=== PATIENT | female | born 1990 | race Caucasian/White ===

== ENCOUNTER 2016-09-11 14:25 | Day surgery (SDC) | payer OTHER ==
[2016-09-03 14:19] LABS: ASCORBIC ACID (UR NOT ORDER) NEG (NEG); BILIRUBIN, URINE NEGATIVE (NEG); KETONE, URINE TRACE MG/DL (NEG); LEUKOCYTE ESTERASE(NOT OR NEG (NEG); WBC (NOT ORDERED) (RFLEX) < 1 (0-5)
--- NOTE | ~2016-09-11 | OP ---
Record Of Operation [facility] [address] [place]. [address] NAME: MARIA A LITTLE : 89 STATUS : [facility]#: [id number] AGE: 26 ADM/REG DATE : 09/11/16 MR#: [id number] REPORT SERV DATE: 09/11/16 DICTATED BY: YIN REEVES DATE: 09/11/16 REPORT STATUS : Draft TRANSCRIBED BY: MODL DATE: 09/11/16 DATE OF PROCEDURE: 09/11/2016 TITLE OF OPERATION: Cystourethroscopy and injection of 300 units of intravesical botulinum toxin. PREOPERATIVE DIAGNOSIS: Neurogenic bladder. POSTOPERATIVE DIAGNOSIS: Neurogenic bladder. INDICATIONS: Maria A is a 26-year-old female with history of a cervical spinal cord injury due to falling off balcony. She has neurogenic bladder. She has had Botox in the past. This has worked well for her. She is here for repeat injection of 300 units of Botox. ANESTHESIA: General. COMPLICATIONS: None. IMPLANTS: None. SPECIMENS: None. NARRATIVE: The patient was brought to the operating room, identified by wristband. General anesthesia was induced. Ancef was given for preoperative antibiotics. She was placed in dorsal lithotomy position, prepped and draped in sterile fashion. A 20-Romansh cystoscope was placed into her urethra and into her bladder. Bladder was inspected. It was normal in appearance. There was no tumors or abnormalities. 300 units of Botox was diluted in 30 mL of injectable saline. Approximately 30 submucosal injections were made just above the detrusor muscle using the pre-provided needle to a depth of 2 mm. The trigone was spared. There was no ongoing bleeding, and the patient tolerated the procedure well. She will follow up in three months or sooner if needed. OMAIRA/NEREIDA Yin Reeves MD / [id number] CC: Yin Reeves MD
[~2016-09-11 14:25] MED LIST: ADDERXR30 PO; MACROBID PO
== END 2016-09-11 19:32 | disposition home or self-care (01) ==
LOC: SDC 14:25
PROVIDERS: Urology
PROC: 3E0K8GC Introduction of Other Therapeutic Substance into Genitourinary Tract, Via Natural or Artificial Opening Endoscopic (ICD-10-PCS; principal; 2016-09-11 16:00)
DX: N31.9 Neuromuscular dysfunction of bladder, unspecified (principal); Z90.89 Acquired absence of other organs
CPT/HCPCS: 81001; 84703; J0585; J0690; J2250; Q9967